=== PATIENT | female | born 1985 | race Caucasian/White ===

== ENCOUNTER → 2022-02-06 10:53 | Outpatient (BNVA) | payer BC, SELFPAY | PROVIDERS: Family Provider Family Medicine; PCP Family Medicine; Visit Provider Family Medicine | DX: Z51.81 Encounter for therapeutic drug level monitoring (principal); R73.03 Prediabetes | CPT/HCPCS: 80053; 83036; 85025 ==

== ENCOUNTER → 2022-03-27 07:54 | Outpatient (BNVA) | payer BC, SELFPAY | PROVIDERS: Family Provider Family Medicine; PCP Family Medicine; Visit Provider Family Medicine | DX: N18.2 Chronic kidney disease, stage 2 (mild) (principal) | CPT/HCPCS: 80069; 82043; 82306; 82310; 83970; 85025 ==

== ENCOUNTER 2022-06-27 06:09 | Outpatient (CLI) | payer BC, SELFPAY ==
--- NOTE | 2022-06-27 | US_ITS ---
WS: [id number] ULTRASOUND RENAL TECHNIQUE: Ultrasound examination of both kidneys. CLINICAL INFORMATION: STAGING OF PCKD COMPARISON: CT 2018, ultrasound 2018 and 2016. FINDINGS: Polycystic kidney disease bilaterally. Predominantly simple cysts with a few slightly compl ex cysts with internal debris. No suspicious solid lesions. No hydronephrosis in either kidney. Bladd er is decompressed. Largest RIGHT renal cysts measure 4.5 x 4.7 x 5.2 cm in the upper pole and 4.2 x 3.9 x 3.7 cm in the mid kidney. Largest LEFT renal cysts measure 4.4 x 3.6 x 4.1 cm inferior lateral LEFT kidney and 3.3 x 3.6 x 3.8 cm in the superior LEFT kidney. RIGHT: Cortical thickness: 1.5 cm; Normal. Hydronephrosis: None. Perinephric fluid: None. Right kidney measures: 17.6 cm x 8.5 cm x 7.1 cm. LEFT: Cortical thickness: 2.0 cm; Normal. Hydronephrosis: None. Perinephric fluid: None. Left kidney measures: 17.3 cm x 8.5 cm x 5.1 cm. Normal visualized aorta. US/US renal BI* [id number] IMPRESSION: 1. Bilateral polycystic kidney disease with enlarged kidneys similar to the pr ior examinations. 2. No hydronephrosis in either kidney. 3. Dominant cysts described above. Cortical origin cysts similar in appearance to 2018.
== END 2022-06-27 06:10 | disposition home or self-care (01) ==
PROVIDERS: PCP Family Medicine; Visit Provider Registered Nurse
DX: Q61.2 Polycystic kidney, adult type (principal)
CPT/HCPCS: 76770; 81000; 83036; 84132; 87086

== ENCOUNTER → 2022-12-04 08:29 | Outpatient (BNVA) | payer BC, SELFPAY | PROVIDERS: PCP Family Medicine; Visit Provider Clinical Nurse Specialist Adult Health | DX: B88.2 Other arthropod infestations (principal) | CPT/HCPCS: 80053 ==

== ENCOUNTER → 2022-12-19 08:21 | Outpatient (BNVA) | payer BC, SELFPAY | PROVIDERS: PCP Family Medicine; Visit Provider Family Medicine | DX: R53.81 Other malaise (principal); R53.83 Other fatigue; R73.03 Prediabetes; Z51.81 Encounter for therapeutic drug level monitoring; Z13.220 Encounter for screening for lipoid disorders; E53.8 Deficiency of other specified B group vitamins; E55.9 Vitamin D deficiency, unspecified | CPT/HCPCS: 80061; 82306; 82607; 83036; 84439; 84443; 85025 ==

== ENCOUNTER 2024-01-29 13:02 | Emergency (ER) | payer BC, SELFPAY ==
[2024-01-29 13:03] VITALS: BP 170/92; PULSE 85; RESP 20; TEMP 36.6; O2SAT 100
--- NOTE | 2024-01-29 13:05 | XRR_ITS ---
PROCEDURE INFORMATION: Exam: XR Chest Exam date and time: 01/29/2024 1:52 PM Age: 38 years old Clinical indication: Shortness of breath; Patient HX: SOB and palpitations - seen by pcp today and told that her RT lung is concerning for blood clot. PT reports that she has been having intermittent SOB since the end of November. TECHNIQUE: Imaging protocol: Radiologic exam of the chest. Views: 1 view. COMPARISON: CR XR chest 2V* [id number] 08/25/2019 11:37 AM FINDINGS: Lungs: The lungs are clear. Pleural spaces: No pneumothorax or pleural effusion. Heart/Mediastinum: Cardiomediastinal silhouette is unremarkable. Bones/joints: No acute osseous or soft tissue abnormality. XR/XR chest 1V portable [id number] IMPRESSION: No acute cardiopulmonary abnormality.
--- NOTE | 2024-01-29 13:05 | ECG_ITS ---
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1985 Requested By: Marques Mauricio Order Number: [id number] Reading MD: OMAR PAULA Measurements Intervals [place] Rate: 82 P: 49 [place]: 140 QRS: 29 QRSD: 88 T: 50 QT: 361 QTc: 424 Interpretive Statements SINUS RHYTHM LOW QRS VOLTAGE IN PRECORDIAL LEADS [QRS DEFLECTION < 1.0 mV IN CHEST LEADS] POSSIBLE ANTERIOR MYOCARDIAL INFARCTION , PROBABLY OLD [30 ms Q WAVE IN V3/V4, OR R < 0.2 mV IN V4] No previous ECG available for comparison Electronically Signed On 01-29-2024 19:53:06 CDT by OMAR PAULA [id number]
--- NOTE | 2024-01-29 15:17 | ED_ITS ---
HPI - SOB/Dyspnea 2 General: Chief Complaint: Shortness of Breath/Dyspnea Stated Complaint: SOB Time Seen by Provider: 01/29/24 15:09 History of Present Illness: HPI Narrative: 38-year-old female was referred to the [facility] from her primary care office due to abnormality on chest x-ray. Primary care provider thought the right lung field looked abnormal. Patient appears nontoxic. Patient appears in no pain. Patient reports increased shortness of breath since stopping her Bumex and being placed on atorvastatin. Patient stopped her atorvastatin about 1 week ago. Patient presently is on spironolactone. Patient has a history of PCOS, cyst of the liver, hypertension, and type 2 diabetes. Patient denies any medical procedures or recent long trips. Patient was told by her primary care that she may have a blood clot. Related Data Home Medications Medication Instructions Recorded Confirmed bumetanide 1 mg tablet 1 mg PO DAILY 02/06/22 02/14/23 Previous Rx's Medication Instructions Recorded promethazine 25 mg tablet See Rx Instructions .Route 11/05/22 .COMPLEX #60 tabs amoxicillin 875 mg-potassium 1 tab PO BID #20 tabs 01/31/23 clavulanate 125 mg tablet metformin 500 mg tablet See Rx Instructions .Route 04/21/23 .COMPLEX #30 tabs spironolactone 25 mg tablet See Rx Instructions .Route 06/06/23 .COMPLEX #90 tabs losartan 100 mg tablet See Rx Instructions .Route 07/01/23 .COMPLEX #90 tabs potassium chloride 10 mEq See Rx Instructions .Route 09/22/23 tablet,extended release .COMPLEX #30 tabs Allergies Allergy/AdvReac Type Severity Reaction Status Date / Time atorvastatin Allergy ADR-Chest Verified 01/29/24 13:13 Pain codeine AdvReac Mild ADR-Vomitin Verified 01/29/24 13:13 g Review of Systems 2 General: Reports: 10 or more systems reviewed and unremarkable except in HPI and below Resp: Reports: dyspnea PFSH ED 2 PFSH: Medical History Bipolar 1 disorder PCOS (polycystic ovarian syndrome) Polycystic kidney disease Polycystic liver disease Prediabetes Surgical History Hx of cholecystectomy Pilonidal cyst Family History Other Hypertension Lung disease Psychiatric illness Social History Smoking and tobacco/nicotine status: never used tobacco/nicotine Alcohol intake: never Substance/Drug Use: never Current occupation: Works at [employer] Female Reproductive History: Date of last menstrual period: 01/18/24 Physical Exam 2 Const: COMMON NORMALS: alert HENMT: COMMON NORMALS: normocephalic HEAD & SCALP: normocephalic Neck/C-Spine: COMMON NORMALS: full ROM Resp: COMMON NORMALS: normal respiratory effort and clear to auscultation bilaterally AUSCULTATION: clear to auscultation bilaterally Cardio: COMMON NORMALS: regular rate RATE: regular rate GI: COMMON NORMALS: Soft to palpation and non-tender PALPATION: Yes Soft to palpation : COMMON NORMALS: Yes no CVA tenderness BLADDER/KIDNEY EXAM: Yes no CVA tenderness Back/Pelvis: COMMON NORMALS: no CVA tenderness Extremity: COMMON NORMALS: normal to inspection and no pedal edema Neuro: SENSORIUM/ORIENTATION: Yes alert Skin: COMMON NORMALS: turgor normal GENERAL SKIN EXAM: turgor normal Course 2 Vital Signs: Vital signs: Vital Signs Temperature 97.8 F 01/29/24 13:03 Pulse Rate 85 01/29/24 13:03 Respiratory Rate 20 H 01/29/24 13:03 Blood Pressure 170/92 01/29/24 13:03 Pulse Oximetry 100 01/29/24 13:03 MDM - SOB/Dyspnea Medical Decision Making 38-year-old female here today for concerns of cough and shortness of breath. On exam patient appears nontoxic. Patient has no edema. Lungs have good air movement throughout. Vital signs note elevated blood pressure 170/92. Pulse ox is 100% on room air. Patient is nontachycardic. Differential diagnosis includes but not limited to CHF, hypertension, anxiety, malingering, abnormal electrolytes. CBC and CMP were unremarkable. Patient's troponin was less than 6. BNP was 49. Chest x-ray showed no abnormalities. Patient's D-dimer was 0.36. Patient was recommended to follow-up with primary care for further evaluation and treatment. No further recommendations from the emergency department at this time. Lab Data 01/29/24 15:27 01/29/24 15:27 Labs/Radiology: Radiology Impressions Chest X-Ray 01/29/24 13:05 IMPRESSION: No acute cardiopulmonary abnormality. Laboratory Results WBC 13.07 10^3/uL (3.29-11.43) H 01/29/24 15: RBC 4.91 10^6/uL (3.85-5.65) 01/29/24 15: Hgb 14.70 g/dL (11.27-16.99) 01/29/24 15: Hct 43.8 % (36-47) 01/29/24 15: MCV 89.2 fl (85-98) 01/29/24 15: MCH 29.9 pg (27-33) 01/29/24 15: MCHC 33.6 g/dL (30-55) 01/29/24 15: RDW 12.5 % (12.1-15.1) 01/29/24: Plt Count 374 10^3/cmm (157-399) 01/29/24: MPV 10.0 fL (7.4-10.4) 01/29/24 15: Neut % (Auto) 71.6 % 01/29/24: Lymph % (Auto) 18.9 % 01/29/24: [place] % (Auto) 6.4 % 01/29/24 15: Eos % (Auto) 2.2 % 01/29/24: Baso % (Auto) 0.4 % 01/29/24: Neut # (Auto) 9.36 10^3/uL (1.8-7.7) H 01/29/24 15: Lymph # (Auto) 2.5 10^3/uL (0.8-4.8) 01/29/24: [place] # (Auto) 0.8 10^3/uL (0.2-0.9) 01/29/24: Eos # (Auto) 0.3 10^3/uL (0.0-0.8) 01/29/24: Baso # (Auto) 0.1 10^3/uL (0.0-0.1) 01/29/24: Nucleated RBC % (auto) 0 % 01/29/24 15:27 Nucleated RBCs # 0.0 /100WBC 01/29/24 15:27 D-Dimer 0.36 ug/mLFEU (0-0.59) 01/29/24 15:27 Sodium 137 mmol/L (136-145) 01/29/24 15:27 Potassium 4.1 mmol/L (3.5-5.1) 01/29/24 15:27 Chloride 100 mmol/L (98-107) 01/29/24 15:27 Carbon Dioxide 25 mmol/L (22-29) 01/29/24 15:27 Anion Gap 16.1 (5-19) 01/29/24 15:27 BUN 20 mg/dL (6-20) 01/29/24 15:27 Creatinine 0.8 mg/dL (0.5-0.9) 01/29/24 15:27 GFR Calculation 79.9 mL/min (90-130) L 01/29/24 15:27 Glucose 131 mg/dL (65-115) H 01/29/24 15:27 Calculated Osmolality 288 mOsm/kg (285-295) 01/29/24 15:27 Calcium 9.7 mg/dL (8.5-10.5) 01/29/24 15:27 Total Bilirubin 0.5 mg/dL (0.15-1.2) 01/29/24 15:27 AST 17 U/L (0-32) 01/29/24 15:27 ALT 26 U/L (0-33) 01/29/24 15:27 Alkaline Phosphatase 70 U/L (35-105) 01/29/24 15:27 Troponin T Baseline < 6 ng/L (0-10) 01/29/24 15:27 NT-Pro-B Natriuret Pep 46 pg/mL (0-125) 01/29/24 15:27 Total Protein 6.5 g/dL (6.6-8.7) L 01/29/24 15:27 Albumin 4.2 g/dL (3.5-5.2) 01/29/24 15:27 Globulin 2.3 g/dL (1.3-4.6) 01/29/24 15:27 All radiology interpretation(s) finalized by discharge EKG Data EKG 1: I personally reviewed and interpreted this EKG as follows: EKG Interpretation Date: 01/29/24 EKG interpretation time: 15:15 Prior EKG tracings: not available for review Interpretation: EKG shows a sinus rhythm with sinus arrhythmia. Irregular rate of [address] elevation is noted. No other ectopy is noted. No prior exam was available for comparison. Computer Generated Interpretation: Sinus rhythm with sinus arrhythmia. Possible left atrial enlargement. Low QRS voltage in precordial leads. Possible anterior myocardial infarction, probably old. Borderline EKG. Unconfirmed report. Discharge Plan Discharge Patient Disposition: Home Clinical Impression: Hypertension Qualifiers: Hypertension type: unspecified Qualified Code(s): I10 - Essential (primary) hypertension Chest pain Qualifiers: Chest pain type: unspecified Qualified Code(s): R07.9 - Chest pain, unspecified Condition: Stable Prescriptions: No Action bumetanide 1 mg tablet 1 mg PO DAILY amoxicillin-pot clavulanate 875-125 mg tablet 1 tab PO BID Qty: 20 0RF promethazine 25 mg tablet See Rx Instructions .ROUTE .COMPLEX Qty: 60 3RF Dose Instruction: TAKE ONE TABLET BY MOUTH TWICE DAILY NEEDED Rx Instructions: TAKE ONE TABLET BY MOUTH TWICE DAILY NEEDED metformin 500 mg tablet See Rx Instructions .ROUTE .COMPLEX Qty: 30 6RF Dose Instruction: TAKE 1 TABLET BY MOUTH EVERY DAY Rx Instructions: TAKE 1 TABLET BY MOUTH EVERY DAY spironolactone 25 mg tablet See Rx Instructions .ROUTE .COMPLEX Qty: 90 3RF Dose Instruction: TAKE 1 TABLET BY MOUTH EVERY MORNING Rx Instructions: TAKE 1 TABLET BY MOUTH EVERY MORNING losartan 100 mg tablet See Rx Instructions .ROUTE .COMPLEX Qty: 90 2RF Dose Instruction: TAKE 1 TABLET BY MOUTH EVERY DAY Rx Instructions: TAKE 1 TABLET BY MOUTH EVERY DAY potassium chloride 10 mEq tablet extended release See Rx Instructions .ROUTE .COMPLEX Qty: 30 6RF Dose Instruction: TAKE 1 TABLET BY MOUTH EVERY DAY Rx Instructions: TAKE 1 TABLET BY MOUTH EVERY DAY Discharge Orders: Discharge ED (Routine); Ordered 01/29/24 Ordered By: Tee Tariq Referrals: Hardeep Bravo MD [Primary Care Provider] - Discharge Diet: Usual diet Patient Instructions: Chest Pain (ED) Activity Restrictions/Additional Instructions: Follow-up with primary care for adjustment of medication for your chest pain and hypertension. Eat a healthy diet. Use acetaminophen as needed for further pain relief. Return to ER for increased shortness of breath, fever greater than 100.4, or new concerns. Thank you for choosing [facility] for your healthcare needs today. Please realize that you were seen in the emergency department and that we are providing you with an emergency medical screening exam and this may not be a complete and all exclusive of all testing and/or medical workup we may need to determine your element or severity of your illness. It is very important that you follow-up as instructed with your primary care provider or specialist for the additional evaluation and to discuss your medical treatment plan. You may return to the emergency department should you have concerns or if your condition changes or worsens in any way. Coding Level of Care Code ED Nursing Staffing Coordinator for Ralph Tony
--- NOTE | 2024-01-29 15:18 | ECG_ITS ---
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1985 Requested By: Tee Schulz Order Number: [id number] Evon MD: OMAR PAULA Measurements Intervals [place] Rate: 74 P: 47 MI: 161 QRS: 17 QRSD: 86 T: 29 QT: 370 QTc: 411 Interpretive Statements SINUS RHYTHM WITH SINUS ARRHYTHMIA POSSIBLE LEFT ATRIAL ENLARGEMENT [-0.1mV P-WAVE IN V1/V2] LOW QRS VOLTAGE IN PRECORDIAL LEADS [QRS DEFLECTION < 1.0 mV IN CHEST LEADS] POSSIBLE ANTERIOR MYOCARDIAL INFARCTION , PROBABLY OLD [30 ms Q WAVE IN V3/V4, OR R < 0.2 mV IN V4] Compared to ECG 01/29/2024 13:05:54 No significant changes Electronically Signed On 01-29-2024 19:52:53 CDT by OMAR PAULA [id number]
[2024-01-29 15:47] LABS: Basophils # 0.1 10^3/uL (0.0-0.1); Basophils % 0.4 %; Eosinophils # 0.3 10^3/uL (0.0-0.8); Eosinophils % 2.2 %; Hematocrit 43.8 % (36-47); Lymphocytes # 2.5 10^3/uL (0.8-4.8); Lymphocytes % 18.9 %; Mean Corpuscular HGB Conc 33.6 g/dL (30-55); Mean Corpuscular Hemoglobin 29.9 pg (27-33); Mean Corpuscular Volume 89.2 fl (85-98); Monocytes # 0.8 10^3/uL (0.2-0.9); Monocytes % 6.4 %; Neutrophils # 9.36 10^3/uL (1.8-7.7); Neutrophils % 71.6 %; Nucleated Red Blood Cells % 0 %; Platelet Count 374 10^3/cmm (157-399); Red Blood Count 4.91 10^6/uL (3.85-5.65); Red Cell Distribution Width 12.5 % (12.1-15.1); White Blood Count 13.07 10^3/uL (3.29-11.43)
[2024-01-29 15:58] LABS: D Dimer 0.36 ug/mLFEU (0-0.59)
[2024-01-29 16:02] LABS: Troponin(5th) Baseline < 6 ng/L (0-10)
[2024-01-29 16:11] LABS: Alanine Aminotransferase 26 U/L (0-33); Albumin Level 4.2 g/dL (3.5-5.2); Alkaline Phosphatase 70 U/L (35-105); Aspartate Amino Transferase 17 U/L (0-32); Blood Urea Nitrogen 20 mg/dL (6-20); Calcium 9.7 mg/dL (8.5-10.5); Carbon Dioxide 25 mmol/L (22-29); Chloride 100 mmol/L (98-107); Creatinine Clr Calc Pharmacy 122.8484; Globulin 2.3 g/dL (1.3-4.6); Glomerular Filtration Rate 79.9 mL/min (90-130); Glucose 131 mg/dL (65-115); NT Pro B Type Natriuretic Pept 46 pg/mL (0-125); Osmolality Calculated 288 mOsm/kg (285-295); Sodium 137 mmol/L (136-145); Total Bilirubin 0.5 mg/dL (0.15-1.2); Total Protein 6.5 g/dL (6.6-8.7)
[2024-01-29 16:12] LABS: Anion Gap 16.1 (5-19); Potassium 4.1 mmol/L (3.5-5.1)
[2024-01-29 16:24] VITALS: BP 119/77; PULSE 81; RESP 16; O2SAT 98
[2024-01-29 16:49] VITALS: BP 118/78; PULSE 79; O2SAT 96
== END 2024-01-29 16:55 | disposition home or self-care (01) ==
PROVIDERS: Emergency Provider Nurse Practitioner Family; PCP Family Medicine
DX: R07.9 Chest pain, unspecified (principal); I10 Essential (primary) hypertension; Z79.84 Long term (current) use of oral hypoglycemic drugs; I49.8 Other specified cardiac arrhythmias
CPT/HCPCS: 36415; 71045; 80053; 83880; 84484; 85025; 85378; 93005; 99285

== ENCOUNTER 2024-05-10 11:58 | Outpatient (CLI) | payer BC, SELFPAY ==
--- NOTE | 2024-05-10 12:02 | CT_ITS ---
WS: [id number] CT ABDOMEN AND PELVIS NONCONTRAST HISTORY: ACUTE R FLANK PAIN/HEMATURIA/NEPHROLITHIASIS, history of polycystic kidney disease. TECHNIQUE: Imaging performed through the abdomen and pelvis. Coronal and sagittal reformats are submi tted. All CT scans at [facility] use at least one of these dose optimization techniques: auto mated exposure control; mA and/or kV adjustment per patient size (includes targeted exams where dose is matched to clinical indication); or iterative reconstruction. DLP: 1187.23 mGy.cm COMPARISON: 08/05/2017 Lower thorax: Lung bases are clear. Visualized heart is normal. No hiatal hernia. Liver: Liver is enlarged with numerous cystic masses. Some of these masses are confluent. Patient has known polycystic disease within the liver. Number of hepatic cysts have increased since 08/05/2017. N o bile duct dilatation. Gallbladder: Prior cholecystectomy. Pancreas: Normal size and attenuation. Normal pancreatic duct. No pancreatitis or mass. Spleen: Normal. Adrenal glands: Normal. No mass. Right kidney: RIGHT kidney is markedly enlarged with cystic and hyperdense masses. Kidney measures 16 .9 cm in length. Kidney is increased in size slightly since the prior CT. No obstruction. There are a few scattered calcifications within the kidney. No ureteral obstruction. Left kidney: Enlarged LEFT kidney with numerous cystic masses and a few scattered hyperdense masses. No hydronephrosis. Normal size ureter. Aorta: Normal abdominal aorta, no aneurysm or atherosclerosis. No free fluid, intraperitoneal air or significant lymphadenopathy. GI tract: Normal noncontrast imaging of the stomach, small bowel and colon. No obstruction or wall th ickening. Normal appendix. Abdominal wall: Negative. No hernia. Pelvis: Normal. No free fluid or adenopathy. Normal urinary bladder. Osseous structures: Unremarkable. CT/CT kidney stone [id number] IMPRESSION: 1. Patient has known polycystic renal disease. Kidneys are enlarged with multi ple cystic and hemorrhagic masses. No obstruction. No ureteral calcifications. 2. Patient has known polycystic liver disease. Cysts have increased in size an d number since 2018. 3. Status post cholecystectomy. 4. No ascites or adenopathy.
== END 2024-05-10 11:59 | disposition home or self-care (01) ==
LOC: RAD 11:59
PROVIDERS: PCP Family Medicine; Visit Provider Nurse Practitioner Family
DX: N20.0 Calculus of kidney (principal); Q61.2 Polycystic kidney, adult type; Q44.6 Cystic disease of liver; Z90.49 Acquired absence of other specified parts of digestive tract; R31.29 Other microscopic hematuria; R10.9 Unspecified abdominal pain
CPT/HCPCS: 74176